=== PATIENT | female | born 1995 | race Hispanic/Latino ===

== ENCOUNTER → 2024-01-12 10:27 | Outpatient (REF) | payer BC, SELFPAY | LOC: PNTC 10:27 | PROVIDERS: ATTENDING PHYSICIAN Obstetrics & Gynecology | DX: O36.60X0 Maternal care for excessive fetal growth, unspecified trimester, not applicable or unspecified (principal); O24.419 Gestational diabetes mellitus in pregnancy, unspecified control | CPT/HCPCS: 76816 ==

== ENCOUNTER → 2024-01-19 08:19 | Outpatient (REF) | payer BC, SELFPAY ==
[2024-01-19 09:29] LABS: Urine Albumin Negative (Neg - Trace); Urine Bilirubin Negative (Negative); Urine Character Very Cloudy (Clear); Urine Color Yellow; Urine Glucose Negative (Negative); Urine Ketone Trace (Negative); Urine Leukocyte Negative (Negative); Urine Nitrite Negative (Negative); Urine Occult Blood Negative (Negative); Urine Specific Gravity 1.015 (<1.030); Urine Urobilinogen Negative (Neg - 1+)
[2024-01-19 09:35] LABS: % Basophils 0.3 % (0-2); % Eosinophils 0.5 % (0-6); % Immature Granulocytes 0.8 % (0-0.5); % Lymphocytes 12.2 % (20.5-51.1); % Monocytes 7.3 % (1.7-9.3); % Neutrophils 78.9 % (42.2-75.2); Absolute Eosinophils 0.1 10^3/uL (0-0.7); Absolute Immature Granulocytes 0.1 10^3/uL (0-0.05); Absolute Lymphocytes 1.1 10^3/uL (1.2-3.4); Absolute Monocytes 0.7 10^3/uL (0.1-0.6); Absolute Neutrophils 7.2 10^3/uL (1.4-6.5); Hematocrit 37.4 % (37.0-47.0); Hemoglobin 12.8 g/dL (12.0-16.0); Mean Corp Hgb Conc. 34.2 g/dL (33.0-37.0); Mean Corpuscular Hgb 31.4 pg (27.0-31.0); Mean Corpuscular Volume 91.7 fL (81.0-99.0); Mean Platelet Volume 9.7 fL (7.4-10.4); Nucleated Red Blood Cells % 0 %; Platelet Count 223 10^3/uL (130-400); Red Blood Cell Count 4.08 10^6/uL (4.20-5.40); Red Cell Dist. Width 12.6 % (11.5-14.5); White Blood Cell Count 9.1 10^3/uL (4.8-10.8)
[2024-01-19 10:32] LABS: Protein/creatinine Ratio 0.2; Urine Protein 13 mg/dl
[2024-01-19 10:38] LABS: ALT (SGPT) 39 U/L (0-35); AST (SGOT) 32 U/L (14-36); Albumin 3.8 g/dl (3.5-5.0); Alkaline Phosphatase 126 U/L (38-126); Blood Urea Nitrogen 10 mg/dl (7-17); Calcium 9.3 mg/dl (8.4-10.2); Carbon Dioxide 22 mmol/L (22-30); Chloride 106 mmol/L (98-107); Glucose 93 mg/dl (70-99); Potassium 4.3 mmol/L (3.5-5.1); Sodium 135 mmol/L (135-145); Total Bilirubin 0.3 mg/dl (0.2-1.3); Total Protein 6.3 g/dl (6.3-8.2); Uric Acid 4.6 mg/dl (2.5-6.2); eGFR > 60.00
== END ==
LOC: REG 08:19
PROVIDERS: ATTENDING PHYSICIAN Obstetrics & Gynecology
DX: Z34.93 Encounter for supervision of normal pregnancy, unspecified, third trimester (principal); O26.00 Excessive weight gain in pregnancy, unspecified trimester
CPT/HCPCS: 36415; 80053; 81003; 82570; 84156; 84550; 85025

== ENCOUNTER → 2024-01-24 11:35 | Outpatient (REF) | payer BC, SELFPAY ==
[2024-01-24 12:21] LABS: % Basophils 0.2 % (0-2); % Eosinophils 0.5 % (0-6); % Lymphocytes 11.4 % (20.5-51.1); % Neutrophils 79.9 % (42.2-75.2); Absolute Eosinophils 0.1 10^3/uL (0-0.7); Absolute Immature Granulocytes 0.1 10^3/uL (0-0.05); Absolute Lymphocytes 1.2 10^3/uL (1.2-3.4); Absolute Monocytes 0.7 10^3/uL (0.1-0.6); Absolute Neutrophils 8.4 10^3/uL (1.4-6.5); Hematocrit 37.3 % (37.0-47.0); Hemoglobin 12.6 g/dL (12.0-16.0); Mean Corp Hgb Conc. 33.8 g/dL (33.0-37.0); Mean Corpuscular Volume 91.6 fL (81.0-99.0); Mean Platelet Volume 9.6 fL (7.4-10.4); Nucleated Red Blood Cells % 0 %; Platelet Count 211 10^3/uL (130-400); Red Blood Cell Count 4.07 10^6/uL (4.20-5.40); Red Cell Dist. Width 12.9 % (11.5-14.5); White Blood Cell Count 10.5 10^3/uL (4.8-10.8)
[2024-01-24 14:19] LABS: ALT (SGPT) 48 U/L (0-35); AST (SGOT) 32 U/L (14-36); Albumin 3.8 g/dl (3.5-5.0); Alkaline Phosphatase 143 U/L (38-126); Blood Urea Nitrogen 14 mg/dl (7-17); Calcium 9.8 mg/dl (8.4-10.2); Carbon Dioxide 19 mmol/L (22-30); Chloride 105 mmol/L (98-107); Glucose 114 mg/dl (70-99); Potassium 4.4 mmol/L (3.5-5.1); Sodium 134 mmol/L (135-145); Total Bilirubin 0.2 mg/dl (0.2-1.3); Total Protein 6.3 g/dl (6.3-8.2); eGFR > 60.00
[2024-01-24 15:00] LABS: Protein/creatinine Ratio 0.3; Urine Protein 11 mg/dl
== END ==
LOC: REG 11:35
PROVIDERS: ATTENDING PHYSICIAN Obstetrics & Gynecology
DX: Z34.83 Encounter for supervision of other normal pregnancy, third trimester (principal)
CPT/HCPCS: 36415; 80053; 82570; 84156; 85025

== ENCOUNTER → 2024-01-31 08:45 | Outpatient (REF) | payer BC, SELFPAY ==
[2024-01-31 10:11] LABS: Hematocrit 37.3 % (37.0-47.0); Hemoglobin 12.8 g/dL (12.0-16.0); Mean Corp Hgb Conc. 34.3 g/dL (33.0-37.0); Mean Corpuscular Hgb 31.4 pg (27.0-31.0); Mean Corpuscular Volume 91.6 fL (81.0-99.0); Mean Platelet Volume 9.8 fL (7.4-10.4); Platelet Count 212 10^3/uL (130-400); Red Blood Cell Count 4.07 10^6/uL (4.20-5.40); Red Cell Dist. Width 13.2 % (11.5-14.5); White Blood Cell Count 9.7 10^3/uL (4.8-10.8)
[2024-01-31 10:58] LABS: Protein/creatinine Ratio 0.2; Urine Protein 13 mg/dl
[2024-01-31 11:06] LABS: ALT (SGPT) 44 U/L (0-35); AST (SGOT) 32 U/L (14-36)
== END ==
LOC: REG 08:45
PROVIDERS: ATTENDING PHYSICIAN Obstetrics & Gynecology
DX: Z34.93 Encounter for supervision of normal pregnancy, unspecified, third trimester (principal)
CPT/HCPCS: 36415; 82565; 82570; 84156; 84450; 84460; 85027

== ENCOUNTER → 2024-02-07 11:59 | Outpatient (REF) | payer BC, SELFPAY ==
[2024-02-07 12:49] LABS: % Basophils 0.3 % (0-2); % Eosinophils 0.7 % (0-6); % Lymphocytes 12.7 % (20.5-51.1); % Monocytes 7.6 % (1.7-9.3); % Neutrophils 77.7 % (42.2-75.2); Absolute Eosinophils 0.1 10^3/uL (0-0.7); Absolute Immature Granulocytes 0.1 10^3/uL (0-0.05); Absolute Lymphocytes 1.3 10^3/uL (1.2-3.4); Absolute Monocytes 0.8 10^3/uL (0.1-0.6); Hematocrit 37.6 % (37.0-47.0); Hemoglobin 13.2 g/dL (12.0-16.0); Mean Corp Hgb Conc. 35.1 g/dL (33.0-37.0); Mean Corpuscular Hgb 31.7 pg (27.0-31.0); Mean Corpuscular Volume 90.4 fL (81.0-99.0); Mean Platelet Volume 9.6 fL (7.4-10.4); Nucleated Red Blood Cells % 0 %; Platelet Count 236 10^3/uL (130-400); Red Blood Cell Count 4.16 10^6/uL (4.20-5.40); Red Cell Dist. Width 12.9 % (11.5-14.5); White Blood Cell Count 10.3 10^3/uL (4.8-10.8)
[2024-02-07 13:12] LABS: ALT (SGPT) 36 U/L (0-35); AST (SGOT) 31 U/L (14-36); Albumin 3.9 g/dl (3.5-5.0); Alkaline Phosphatase 160 U/L (38-126); Blood Urea Nitrogen 11 mg/dl (7-17); Carbon Dioxide 22 mmol/L (22-30); Chloride 105 mmol/L (98-107); Glucose 91 mg/dl (70-99); Potassium 4.5 mmol/L (3.5-5.1); Sodium 134 mmol/L (135-145); Total Bilirubin 0.3 mg/dl (0.2-1.3); Total Protein 6.4 g/dl (6.3-8.2); eGFR > 60.00
[2024-02-07 13:56] LABS: Protein/creatinine Ratio 0.1; Urine Protein 11 mg/dl
== END ==
LOC: REG 11:59
PROVIDERS: ATTENDING PHYSICIAN Obstetrics & Gynecology
DX: Z34.83 Encounter for supervision of other normal pregnancy, third trimester (principal)
CPT/HCPCS: 36415; 80053; 82570; 84156; 85025

== ENCOUNTER → 2024-02-08 13:15 | Outpatient (REF) | payer BC, SELFPAY | LOC: CLAB 13:15 | PROVIDERS: ATTENDING PHYSICIAN Obstetrics & Gynecology | DX: Z34.90 Encounter for supervision of normal pregnancy, unspecified, unspecified trimester (principal) | CPT/HCPCS: 87070 ==

== ENCOUNTER → 2024-02-09 11:31 | Outpatient (REF) | payer BC, SELFPAY | LOC: PNTC 11:31 | PROVIDERS: ATTENDING PHYSICIAN Obstetrics & Gynecology | DX: O26.849 Uterine size-date discrepancy, unspecified trimester (principal); O12.10 Gestational proteinuria, unspecified trimester; Z36.88 Encounter for antenatal screening for fetal macrosomia | CPT/HCPCS: 59025; 76816 ==

== ENCOUNTER → 2024-02-14 11:45 | Outpatient (REF) | payer BC, SELFPAY ==
[2024-02-14 12:22] LABS: Hematocrit 36.4 % (37.0-47.0); Hemoglobin 12.9 g/dL (12.0-16.0); Mean Corp Hgb Conc. 35.4 g/dL (33.0-37.0); Mean Corpuscular Hgb 31.9 pg (27.0-31.0); Mean Corpuscular Volume 89.9 fL (81.0-99.0); Mean Platelet Volume 9.6 fL (7.4-10.4); Platelet Count 226 10^3/uL (130-400); Red Blood Cell Count 4.05 10^6/uL (4.20-5.40)
[2024-02-14 12:48] LABS: ALT (SGPT) 28 U/L (0-35); AST (SGOT) 29 U/L (14-36); Albumin 3.7 g/dl (3.5-5.0); Alkaline Phosphatase 158 U/L (38-126); Blood Urea Nitrogen 13 mg/dl (7-17); Calcium 9.8 mg/dl (8.4-10.2); Carbon Dioxide 20 mmol/L (22-30); Chloride 104 mmol/L (98-107); Glucose 123 mg/dl (70-99); Potassium 4.3 mmol/L (3.5-5.1); Sodium 133 mmol/L (135-145); Total Bilirubin 0.3 mg/dl (0.2-1.3); Total Protein 6.1 g/dl (6.3-8.2); eGFR > 60.00
== END ==
LOC: REG 11:45
PROVIDERS: ATTENDING PHYSICIAN Obstetrics & Gynecology
DX: Z34.03 Encounter for supervision of normal first pregnancy, third trimester (principal)
CPT/HCPCS: 36415; 80053; 85027

== ENCOUNTER → 2024-02-22 09:01 | Outpatient (REF) | payer BC, SELFPAY | LOC: PNTC 09:01 | PROVIDERS: ATTENDING PHYSICIAN Obstetrics & Gynecology | DX: Z36.0 Encounter for antenatal screening for chromosomal anomalies (principal) | CPT/HCPCS: 76816 ==

== ENCOUNTER 2024-02-23 19:22 | Inpatient (IN) | payer BC, SELFPAY ==
[2024-02-23 19:35] VITALS: BP 131/77; BMI 37.9
[2024-02-23 19:58] LABS: % Basophils 0.3 % (0-2); % Eosinophils 0.8 % (0-6); % Immature Granulocytes 0.6 % (0-0.5); % Monocytes 7.3 % (1.7-9.3); Absolute Eosinophils 0.1 10^3/uL (0-0.7); Absolute Immature Granulocytes 0.1 10^3/uL (0-0.05); Absolute Lymphocytes 1.4 10^3/uL (1.2-3.4); Absolute Monocytes 0.8 10^3/uL (0.1-0.6); Absolute Neutrophils 8.4 10^3/uL (1.4-6.5); Hematocrit 33.1 % (37.0-47.0); Mean Corp Hgb Conc. 36.3 g/dL (33.0-37.0); Mean Corpuscular Hgb 31.5 pg (27.0-31.0); Mean Corpuscular Volume 86.9 fL (81.0-99.0); Mean Platelet Volume 9.6 fL (7.4-10.4); Nucleated Red Blood Cells % 0 %; Platelet Count 222 10^3/uL (130-400); Red Blood Cell Count 3.81 10^6/uL (4.20-5.40); Red Cell Dist. Width 13.1 % (11.5-14.5); White Blood Cell Count 10.7 10^3/uL (4.8-10.8)
[2024-02-23 20:12] LABS: ALT (SGPT) 24 U/L (0-35); AST (SGOT) 28 U/L (14-36); Albumin 3.7 g/dl (3.5-5.0); Alkaline Phosphatase 171 U/L (38-126); Blood Urea Nitrogen 14 mg/dl (7-17); Calcium 9.9 mg/dl (8.4-10.2); Carbon Dioxide 21 mmol/L (22-30); Chloride 106 mmol/L (98-107); Estimated Creatinine Clearance > 125 ml/min; Glucose 119 mg/dl (70-99); Potassium 3.9 mmol/L (3.5-5.1); Sodium 134 mmol/L (135-145); Total Bilirubin 0.2 mg/dl (0.2-1.3); Total Protein 6.2 g/dl (6.3-8.2); eGFR > 60.00
[2024-02-23] MEDS: LR 1000 IV (20:19)
[2024-02-23] MEDS: CYTOTEC 25 MICROGRAM VAG (20:19)
[2024-02-24] MEDS: CYTOTEC 50 MICROGRAM PO ×5 (00:02→17:53)
[2024-02-24] MEDS: PRENATAL PLUS PO (14:24)
[2024-02-24] MEDS: MORPHINE SULFATE 2 MG IV (21:12)
[2024-02-24] MEDS: PITOCIN 30 UNITS/NSS 500 ML IV (23:10)
[2024-02-24] MEDS: SUBLIMAZE 100 MCG EPIDURAL (23:34)
[2024-02-24] MEDS: FENTANYL/BUPIVACAINE 100 EPIDURAL (23:35)
[2024-02-25] MEDS: LR 1000 IV ×2 (03:40→10:56)
[2024-02-25] MEDS: FENTANYL/BUPIVACAINE 100 EPIDURAL ×2 (07:17→15:56)
[2024-02-25] MEDS: PRENATAL PLUS PO (10:21)
[2024-02-25] MEDS: ZOFRAN 4 MG IV (10:56)
[2024-02-25] MEDS: FLUSH (NSS) 2 FLUSH IV (10:58)
[2024-02-26] MEDS: TYLENOL 650 MG PO ×4 (01:38→20:07)
[2024-02-26] MEDS: MOTRIN 600 MG PO ×4 (01:39→20:07)
[2024-02-26 05:03] LABS: Hematocrit 28.9 % (37.0-47.0); Hemoglobin 10.3 g/dL (12.0-16.0)
[2024-02-26] MEDS: PRENATAL PLUS 1 TABLET PO (07:54)
[2024-02-26] MEDS: SENOKOT-S 1 TABLET PO (09:00)
[2024-02-26] MEDS: FEOSOL 325 MG PO (13:57)
[2024-02-27] MEDS: MOTRIN 600 MG PO ×2 (02:44→09:17)
[2024-02-27] MEDS: TYLENOL 650 MG PO ×2 (02:45→09:17)
[2024-02-27] MEDS: SENOKOT-S 1 TABLET PO (07:53)
[2024-02-27] MEDS: FEOSOL 325 MG PO (07:53)
[2024-02-27] MEDS: PRENATAL PLUS 1 TABLET PO (07:56)
[2024-02-28 13:50] LABS: Syphilis/T. pallidum Ab Reflex Negative (Negative)
== END 2024-02-27 12:53 | disposition home or self-care (01) | DRG 807 ==
LOC: LDRP 19:22
PROVIDERS: Obstetrics & Gynecology; ADMITTING PHYSICIAN Obstetrics & Gynecology
PROC: 3E0P7GC Introduction of Other Therapeutic Substance into Female Reproductive, Via Natural or Artificial Opening (ICD-10-PCS; 2024-02-23)
PROC: 0U7C7ZZ Dilation of Cervix, Via Natural or Artificial Opening (ICD-10-PCS; 2024-02-24)
PROC: 3E033VJ Introduction of Other Hormone into Peripheral Vein, Percutaneous Approach (ICD-10-PCS; 2024-02-24)
PROC: 0KQM0ZZ Repair Perineum Muscle, Open Approach (ICD-10-PCS; 2024-02-25)
PROC: 10907ZC Drainage of Amniotic Fluid, Therapeutic from Products of Conception, Via Natural or Artificial Opening (ICD-10-PCS; 2024-02-25)
PROC: 10E0XZZ Delivery of Products of Conception, External Approach (ICD-10-PCS; 2024-02-25)
PROC: 0W8NXZZ Division of Female Perineum, External Approach (ICD-10-PCS; 2024-02-25)
DX: O36.63X0 Maternal care for excessive fetal growth, third trimester, not applicable or unspecified (principal); Z37.0 Single live birth; O69.81X0 Labor and delivery complicated by cord around neck, without compression, not applicable or unspecified; O70.1 Second degree perineal laceration during delivery; Z3A.39 39 weeks gestation of pregnancy
CPT/HCPCS: 88307; 80053; 85014; 85018; 85025; 86780; 86850; 86900; 86901

== ENCOUNTER → 2024-12-11 09:24 | Outpatient (REF) | payer OTHER, SELFPAY | LOC: WDC 09:24 | PROVIDERS: ATTENDING PHYSICIAN Student in an Organized Health Care Education/Training Program | DX: N64.52 Nipple discharge (principal) | CPT/HCPCS: 76642 ==